=== PATIENT | female | born 1990 | race Two or more races ===

== ENCOUNTER 2016-12-07 05:22 | Emergency (ER) | payer OTHER ==
[~2016-12-07] VITALS: Ht 165.1 cm; Wt 75.0 kg
[2016-12-07 05:27] VITALS: BP 151/93; PULSE 80; RESP 16; O2SAT 98
[2016-12-07] MEDS ORDERED: 0.9% Sodium Chloride 1,000 ML IV ONE ×2 (05:38→06:38)
[2016-12-07] MEDS: Ondansetron 2 mg/mL 2 mL Inj IVPUSH PRN ×2 (06:01→07:15)
[2016-12-07 06:11] LABS: BASOPHILS % (AUTO) 0.1 % (0-3); EOSINOPHILS % (AUTO) 0.2 % (0-5); MONOCYTES % (AUTO) 6.9 % (4-12); Mean Corpuscular Volume 89.4 fL (81-100); NEUTROPHILS % (AUTO) 73.8 % (40-74); Platelet Count 300 bil/L (150-400)
--- NOTE | 2016-12-07 06:25 | ED.REPORT ---
HPI-Abd Pain F Under 40 Date of Service Dec 07, 2016 ED Provider: Elliot Subramanian MD Patient is a 26 year old female who presents to the ED complaining of abdominal pain onset yesterday afternoon. Associated symptoms include nausea and vomiting. The patient reports that she has also had more vaginal bleeding than normal. She denies diarrhea or hematemesis. Patient states that she recently used Plan B a week ago and was concerned for an ectopic since she had similar pain with that. Nursing Notes Stated Complaint: SEVERE STOMACH PAIN Chief Complaint: Female Abdominal Pain Nursing Notes Reviewed: Yes Allergies: Coded Allergies: No Known Allergies (Unverified , 12/07/16) Scheduled Cephalexin (Keflex) 500 Mg Capsule 500 MG PO QID General Time Seen by MD: 06:05 Chief Complaint Abdominal pain Hx Obtained From: Patient Arrived By: Walk-in Sudden in Onset?: Yes Onset Occurred: 1 - 4 hours ago Symptom Duration: Since onset Location: : Abdomen lower Quality: Painful Radiation: : Abdomen upper Severity: Current: Moderate Recent Healthcare: No recent hospitalization Past Medical History Past Medical History none reported Past Surgical History Reports: Cholecystectomy Smoking History Unknown if Ever Smoker Social History Drug Use: THC Other Social History: Good social support Ambulatory Status Independent Review of Systems Constitutional: Denies: Chills, Fever Respiratory: Denies: Non-productive cough, Shortness of breath GI: Reports: Abdominal pain, Nausea, Vomiting, Denies: Diarrhea, Hematemesis Complete sys rev & neg: except as marked. Skin: Denies Itching, Denies Rash Physical Exam Initial Vital Signs Vital Signs (First) Date Time Temp Pulse Resp B/P Pulse Ox O2 Delivery O2 Flow Rate FiO2 12/07/16 05:27 37.2 80 16 151/93 98 Room Air Initial VS: Reviewed General/Constitutional: Awake, Alert Respiratory / Chest: Atraumatic, Breath sounds NL, Breath sounds = bilat, No respiratory distress Cardiovascular: Heart rate NL, Regular rhythm, Heart sounds NL Abdomen: Atraumatic, Soft, No guarding, No rebound Tenderness/Guarding/Rebound: Positive: Tender diffuse (more in the suprapubic area), Tender suprapubic Back: Atraumatic, No CVA tenderness Head / Eyes: Atraumatic, Normocephalic, PERRL, EOMI Skin: Atraumatic, Color NL, No rash, Warm, Dry Neurologic: Oriented X3, Speech NL Upper Extremity / MS: Atraumatic, Full range of motion Psychiatric: Affect NL, Mood NL Interpretation & Diagnostics Lab Results Interpretation Result Diagram: 12/07/16 0555 12/07/16 0555 Test 12/07/16 05:55 12/07/16 06:00 White Blood Count 12.3th/mm3 (3.8-10.1) Red Blood Count 4.33mil/mm3 (3.90-5.20) Hemoglobin 13.0g/dL (12.0-15.6) Hematocrit 38.7% (35.0-46.0) Mean Corpuscular Volume 89.4fL (81-100) Mean Corpuscular Hemoglobin 30.0pg (27.0-35.0) Mean Corpuscular Hemoglobin Concent 33.6% (32.0-37.0) Red Cell Distribution Width 13.3% (12.3-15.4) Platelet Count 300bil/L (150-400) Neutrophils (%) (Auto) 73.8% (40-74) Lymphocytes (%) (Auto) 18.8% (14-46) Monocytes (%) (Auto) 6.9% (4-12) Eosinophils (%) (Auto) 0.2% (0-5) Basophils (%) (Auto) 0.1% (0-3) Sodium Level 144mEq/L (134-144) Potassium Level 3.3mEq/L (3.5-5.2) Chloride Level 105mEq/L (97-108) Carbon Dioxide Level 22mmol/L (18-29) Blood Urea Nitrogen 9mg/dL (6-20) Creatinine 0.57mg/dL (0.57-1.00) Estimat Glomerular Filtration Rate 187mL/min (>59) Glucose Level 97mg/dL (60-99) Calcium Level 9.3mg/dL (8.5-10.1) Magnesium Level 1.9mg/dL (1.6-2.6) Total Bilirubin 0.9mg/dL (0.0-1.2) Aspartate Amino Transf (AST/SGOT) 14U/L (0-50) Alanine Aminotransferase (ALT/SGPT) 10U/L (0-32) Alkaline Phosphatase 76U/L (25-150) Total Protein 7.3g/dL (6.4-8.4) Albumin 4.3g/dL (3.4-5.0) Lipase 17U/L (13-60) Hold Cole Top Tube Received (Received) Hold Urine Received (Received) CT Abd / Pelvis Interpretation IMPRESSION: No imaging explanation for abdominal pain status post cholecystectomy. The appendix appears normal. Dictated by: Vinnie Cormier M.D. on 12/07/2016 at 8:09 Approved by: Vinnie Cormier M.D. on 12/07/2016 at 8:15 Interpretation / Wet Read by: Interpret - Radiologist Re-Eval/Medical Decision Med Decision/Clinical Course Med Decision/Clinical Course: 26-year-old female presenting with abdominal pain. Urine suggests UTI. She is not . Abdomen soft nontender on repeat exam. She was treated for UTI. Will follow up with primary doctor in 2 days. Return precautions given. Re-Evaluation/Progress : Time of Eval: 09:09 Re-Evaluation/Progress Note: Discussed CT results and plan for discharge. Patient understands and agrees to plan. All questions were addressed. Counseled Regarding: Diagnosis, Lab results, Need for follow-up, When/why to return to ED Discharge & Departure Primary Impression: UTI (urinary tract infection) Urinary tract infection type: site unspecified Hematuria presence: without hematuria Qualified Code: N39.0 - Urinary tract infection, site not specified Additional Impression: Abdominal pain Abdominal location: lower abdomen, unspecified Qualified Code: R10.30 - Lower abdominal pain, unspecified Disposition: Home Discharge Condition All VS Reviewed: Yes Condition: Stable Patient Instructions: Urinary Tract Infection in Women (ED) Additional Instructions: Your CT scan was normal and reassuring. Your urine showed evidence of a UTI. Take Keflex 2x a day for 7 days. You can take ibuprofen as directed for pain. Follow up with your primary care physician in the next 2-3 days. Return to the emergency department if you develop any new or concerning symptoms including back pain, fever, nausea, vomiting or increasing pain. Referrals: NOPCP (PCP) Scribe Attestation Portions of this note were transcribed by Rylee Knutson. I, Dr. Subramanian personally performed the history, physical exam and medical decision-making; I reviewed and confirmed the accuracy of the information in the transcribed note. Signed by: Jeannie Samson, 12/07/16 Elliot Subramanian MD Dec 07, 2016 06:25 Fabienne Knutson Dec 07, 2016 06:39
[2016-12-07 06:28] LABS: Magnesium 1.9 mg/dL (1.6-2.6)
[2016-12-07] MEDS ORDERED: Ondansetron 2 mg/mL 2 mL Inj IVPUSH PRN (06:40)
--- NOTE | 2016-12-07 08:17 | DRSVH ---
PROCEDURE: CT ABDOMEN AND PELVIS WITH CONTRAST ([id number]) INDICATIONS: 26 year-old female with abdominal pain. TECHNIQUE: After the administration of intravenous contrast, 5 mm thick sections acquired from the diaphragm to the symphysis. 5 mm coronal and sagittal reformats were acquired. For radiation dose reduction, the following was used: automated exposure control, adjustment of mA and/or kV according to patient siz e. COMPARISON: None. FINDINGS: Image quality: Excellent. ABDOMEN: Lung bases: Lung bases are clear. Heart size is normal. Solid organs: Liver and spleen are normal in size and enhancement. Gallbladder is surgically absent . Biliary system is non dilated. Pancreas enhances normally. No adrenal nodules. Kidneys demonstr ate normal size and enhancement, without hydronephrosis. Peritoneum and bowel: Bowel loops demonstrate normal wall thickness and caliber. The appendix appea rs normal on axial image 66. No free fluid or air. Nodes and vessels: No retroperitoneal or mesenteric adenopathy by size criteria. Aorta and inferior vena cava are normal in size. Miscellaneous: No ventral hernias. PELVIS: Genitourinary: Bladder wall thickness is normal. Uterus and ovaries are normal in size. Miscellaneous: No inguinal hernias or adenopathy. Bones: No suspicious bony lesions. No vertebral body compression fractures. IMPRESSION: No imaging explanation for abdominal pain status post cholecystectomy. The appendix appea rs normal. Dictated by: Vinnie Cormier M.D. on 12/07/2016 at 8:09 Approved by: Vinnie Cormier M.D. on 12/07/2016 at 8:15
[2016-12-07] MEDS ORDERED: CEPH-512 PO (09:08)
[2016-12-07 09:34] VITALS: BP 154/79; PULSE 68; RESP 17; O2SAT 98
== END 2016-12-07 09:35 | disposition home or self-care (01) ==
LOC: SED 05:22
DX: N39.0 Urinary tract infection, site not specified (principal); R10.30 Lower abdominal pain, unspecified
CPT/HCPCS: 36415; 74177; 80053; 81025; 83690; 83735; 85025; 96361; 96374; 96375; 99285; J1885; J2270; J2405; J7030; Q9967